=== PATIENT | female | born 1950 | race African-American/Black ===

== ENCOUNTER 2020-11-06 10:32 | Emergency (ER) | payer MEDICARE, SELFPAY ==
--- NOTE | ~2020-11-06 | CT_ITS ---
EXAMINATION: CT brain wo con DATE: 11/06/2020 11:53 INDICATION: Fall with head injury TECHNIQUE: Computed tomography (CT) of the head was performed without intravenous contrast. Sagittal and coronal reconstructions were performed. The mA was adjusted according to patient size. Iterative reconstruction technique was employed. The dose-length product was 605.33 mGy-cm. COMPARISON: None FINDINGS: No acute intracranial hemorrhage, acute infarction or abnormal extra axial fluid collection. There is mild scattered white matter hypoattenuation consistent with chronic small vessel ischemic disease. S ymmetric prominence of the sulci consistent with mild age-appropriate diffuse cerebral volume loss. V entricles are normal and symmetric. No mass/mass effect. The orbits, paranasal sinuses and mastoid ai r cells are normal. Hyperostosis frontalis. IMPRESSION: 1. No fracture or acute intracranial process. 2. Age-related changes including mild diffuse volume loss and mild scattered white matter hypoattenua tion consistent with chronic small vessel ischemic disease. Reviewed, dictated and finalized at location A. [employer] IMPRESSION: 1. No fracture or acute intracranial process. 2. Age-related changes including mild diffuse volume loss and mild scattered wh ite matter hypoattenuation consistent with chronic small vessel ischemic diseas e.
--- NOTE | ~2020-11-06 | CT_ITS ---
EXAMINATION: 1. CT facial & cervical spine wo DATE: 11/06/2020 11:53 INDICATION: Fall with head injury and laceration at the bridge of the nose TECHNIQUE: 1. Computed tomography (CT) of the maxillofacial region and of the cervical spine were performed with out intravenous contrast. Sagittal and coronal reconstructions of both regions were obtained. Automat ed exposure control and iterative reconstruction technique were employed. The dose-length product was 158.23 mGy-cm. COMPARISON: None. FINDINGS: Maxillofacial CT: Soft tissue swelling and subcutaneous gas in the region of the bridge of the nose consistent with giv en history of skin laceration at this location. No maxillofacial fractures identified. Specifically t he nasal bones, midline nasal septum, earl of the orbits and paranasal sinuses mandible and zygomati c arches are intact. Normal alignment with mild osteoarthritis at the temporomandibular joints. Orbit s are normal with intact appearing globes and no post septal inflammatory stranding. Poor dentition w ith multiple absent teeth and prominent periodontal disease. Cervical spine CT: Nonfocal reversal of the normal cervical lordosis which could be positional or secondary to muscle sp asm. 2 mm retrolisthesis C5 on C6 with moderate associated disc height loss and severe bilateral unco vertebral osteoarthritis contributing to mild central canal and bilateral neural foraminal stenosis a t this level. Mild disc height loss at C2-C3 through C4-C5. Vertebral body heights are normal. No fra cture. Mild atherosclerotic calcific a cyst at the bilateral carotid bulbs. Cervical soft tissues and visualized portions of the airway are otherwise unremarkable. Mild biapical pleural-parenchymal scar ring. IMPRESSION: 1. Laceration at the bridge of the nose. No maxillofacial fractures. 2. Reversal the normal cervical lordosis which could be positional or secondary to muscle spasm. No a cute osseous abnormality. 3. Mild to moderate cervical spondylosis. Reviewed, dictated and finalized at location A. [employer] IMPRESSION: 1. Laceration at the bridge of the nose. No maxillofacial fractures. 2. Reversal the normal cervical lordosis which could be positional or secondary to muscle spasm. No acute osseous abnormality. 3. Mild to moderate cervical spondylosis.
[2020-11-06 10:57] VITALS: BP 176/104; PULSE 85; RESP 16; TEMP 36.9; O2SAT 99
[2020-11-06 13:00] VITALS: BP 168/94; PULSE 88; RESP 16; O2SAT 99
[2020-11-06] MEDS: TETANUS,DIPHTHERIA,AC PERTUSSIS ADULT (0.5 ML) BOOSTRIX IM (13:35)
--- NOTE | 2020-11-06 14:14 | ED.HEATRA ---
HPI - Head Injury General Chief complaint: Head Injury Stated complaint: FALL, FACIAL INJURY Time Seen by Provider: 11/06/20 11:21 Source: patient and family (Son) Mode of arrival: wheelchair Limitations: language barrier and dementia History of Present Illness HPI Narrative: Patient is a 70-year-old female who presents after a fall on way to bathroom this a.m while son was assisting her out of bed. Patient's son reports that patient fell and hit head on the closet. Has 2 lacerations to bridge of nose. Patient son denies LOC. Unknown when last tetanus was. Per patient's son, patient has had no change in mentation, patient is nonverbal at this time. Patient son reports this is baseline. Patient's son only has limited medical history as he reports his sister normally takes care of patient. MD Complaint: fall Related Data Home Medications Medication Instructions Recorded Confirmed buspirone mg 11/06/20 mirtazapine mg 11/06/20 oxybutynin chloride 11/06/20 risperidone mg 11/06/20 Allergies Allergy/AdvReac Type Severity Reaction Status Date / Time EGGS Allergy Other Uncoded 11/06/20 11:13 Review of Systems Review of Systems: Narrative: CONSTITUTIONAL: Denies fever, chills, or sweats. EYES: Denies visual changes, redness, or discharge. ENT: Denies rhinorrhea, congestion, sore throat, or otalgia. CARDIOVASCULAR: Denies chest pain, palpitations, or edema. RESPIRATORY: Denies cough or dyspnea. GASTROINTESTINAL: Denies abdominal pain, nausea, vomiting, or diarrhea. GENITOURINARY: Denies dysuria or hematuria. SKIN: Laceration x2 to nose MUSCULOSKELETAL: Denies back pain, joint pain, or myalgia. NEUROLOGIC: Denies headache, numbness, dizziness, or weakness. PSYCHIATRIC: Denies anxiety or depression. [facility] Past Medical History Medical History (Updated 11/06/20 @ 14:25 by YULISSA Muñoz) Dementia Family History Family History (Updated 11/06/20 @ 14:18 by YULISSA Muñoz) Other No significant family history Social History Social History (Updated 11/06/20 @ 14:19 by YULISSA Muñoz) Smoking status: Never smoker Alcohol intake: never Substance use: never Living arrangements: with family Exam Narrative: Exam Narrative: GENERAL: Well-appearing, well-nourished, and in no acute distress. HEAD: Normocephalic, atraumatic. EYES: No redness or drainage. Ecchymosis to right eye ENT: Mucous membranes pink and moist. Nares clear. No rhinorrhea. TMs normal bilaterally. Throat normal. Uvula midline. NECK: AROM. Supple. No lymphadenopathy. CHEST: No respiratory distress. HEART: Regular rate and rhythm. MUSCULOSKELETAL: No bony tenderness. EXTREMITIES: Normal range of motion. SKIN: Approximately 1.5 cm laceration to bridge of nose, approximately 1 cm laceration near right eyebrow NEURO: Baseline dementia. Alert and oriented x3. Gait steady. PSYCH: Normal affect. No signs of depression or anxiety. Course Vital Signs Vital signs: Vital Signs Temperature 36.9 C 11/06/20 10:57 Pulse Rate 85 11/06/20 10:57 Respiratory Rate 16 11/06/20 10:57 Blood Pressure 176/104 H 11/06/20 10:57 Pulse Oximetry 99 11/06/20 10:57 Temperature 36.9 C 11/06/20 10:57 Pulse Rate 85 11/06/20 10:57 Respiratory Rate 16 11/06/20 10:57 Blood Pressure 176/104 H 11/06/20 10:57 Pulse Oximetry 99 11/06/20 10:57 Reviewed. Patient has been instructed to follow-up with her PCP regarding her blood pressure. Procedures Laceration Laceration 1: Date: 11/06/20 Time: 14:26 Site: face Size (cm): 1.5 Description: linear Depth: simple, single layer Local Anesthetic: lidocaine 1% Amount of anesthesia used (mL): 1 Pre-repair: irrigated ====== Skin Level ====== Skin layer closed with: nylon Size (cm): 6-0 Technique: simple, interrupted ====== Subcutaneous Layer ====== Number of sutu
[2020-11-06 14:55] VITALS: BP 167/94; PULSE 90; RESP 14; O2SAT 99
== END 2020-11-06 14:58 | disposition home or self-care (01) ==
PROVIDERS: Emergency Provider Nurse Practitioner; PCP Nurse Practitioner Family
DX: S01.21XA Laceration without foreign body of nose, initial encounter (principal); F03.90 Unspecified dementia, unspecified severity, without behavioral disturbance, psychotic disturbance, mood disturbance, and anxiety; Z23 Encounter for immunization; M47.812 Spondylosis without myelopathy or radiculopathy, cervical region; W18.09XA Striking against other object with subsequent fall, initial encounter
CPT/HCPCS: 12011; 70450; 70486; 72125; 90471; 90714; 90715; 99284